=== PATIENT | female | born 1980 | race African-American/Black ===

== ENCOUNTER 2016-12-15 17:36 | Emergency (ER) | payer OTHER ==
[~2016-12-15] VITALS: Ht 152.4 cm; Wt 87.1 kg
[~2016-12-15 17:36] MED LIST: ASPIRIN EC325 MG PO; CIPRO500 MG PO; CYCLOBENZAPRINE5 MG PO
[2016-12-15] MEDS ORDERED: NOHOMEMEDICATIONS (19:00)
[2016-12-15 19:35] LABS: MCH 18.1 pg (26.0-34.0); MCHC 30.3 g/dL (28.0-37.0); MCV 59.9 fL (80.0-100.0)
[2016-12-15 19:36] LABS: HEMOGLOBIN 7.6 gm/dL (12.0-15.0); PLATELET COUNT 380 thou/uL (150-400); RBC 4.17 mil/uL (4.20-5.00); RDW 20.1 % (10.5-14.5); WBC 11.2 thou/uL (4.0-11.0)
[2016-12-15 19:37] LABS: MANUAL DIFF YES
[2016-12-15 19:47] LABS: CALCIUM 8.6 mg/dL (8.5-10.1); CREATININE 0.6 mg/dL (0.6-1.0); POTASSIUM 3.7 mmol/L (3.5-5.1)
[2016-12-15 19:54] LABS: ALBUMIN 3.3 g/dL (3.4-5.0); DIRECT BILIRUBIN 0.1 mg/dL (<0.1-0.3); TOTAL BILIRUBIN 0.6 mg/dL (<0.1-1.0)
[2016-12-15 20:45] LABS: ABSOLUTE NEUTROPHILS 6.7 thou/uL (1.4-8.2); TOTAL CELL COUNT 100
[2016-12-15 20:46] LABS: ANISOCYTOSIS 2+; HYPOCHROMASIA 3+; LARGE PLATELETS FEW; MICROCYTES 3+; OVALOCYTES FEW; TARGET CELLS FEW
[2016-12-15] MEDS ORDERED: PRILOSEC OTC20 MG PO (21:06)
[2016-12-15] MEDS ORDERED: CARAFATE 1 GM TA1 G1 PO (21:06)
[2016-12-15 21:46] VITALS: BP 99/54
== END 2016-12-15 21:47 | disposition home or self-care (01) ==
LOC: ER 17:36
PROVIDERS: Emergency Medicine
DX: K92.2 Gastrointestinal hemorrhage, unspecified (principal); K27.9 Peptic ulcer, site unspecified, unspecified as acute or chronic, without hemorrhage or perforation; Z98.51 Tubal ligation status